=== PATIENT | female | born 1935 | race Caucasian/White ===

== ENCOUNTER → 2024-05-21 07:06 | Outpatient (REF) | payer BC, SELFPAY ==
[2024-05-21 08:44] LABS: Blood Urea Nitrogen 38 mg/dl (7-17); Calcium 9.2 mg/dl (8.4-10.2); Carbon Dioxide 26 mmol/L (22-30); Chloride 101 mmol/L (98-107); Glucose 94 mg/dl (70-99); Sodium 137 mmol/L (135-145); eGFR 54.87
== END ==
LOC: REG 07:06
PROVIDERS: ATTENDING PHYSICIAN Internal Medicine Cardiovascular Disease
DX: I50.20 Unspecified systolic (congestive) heart failure (principal)
CPT/HCPCS: 36415; 80048

== ENCOUNTER → 2024-08-03 07:08 | Outpatient (REF) | payer BC, SELFPAY ==
[2024-08-03 08:31] LABS: % Basophils 0.7 % (0-2); % Eosinophils 2.4 % (0-6); % Immature Granulocytes 0.2 % (0-0.5); % Lymphocytes 18.2 % (20.5-51.1); % Neutrophils 64.5 % (42.2-75.2); Absolute Eosinophils 0.1 10^3/uL (0-0.7); Absolute Lymphocytes 0.8 10^3/uL (1.2-3.4); Absolute Monocytes 0.6 10^3/uL (0.1-0.6); Absolute Neutrophils 2.7 10^3/uL (1.4-6.5); Hematocrit 39.9 % (37.0-47.0); Hemoglobin 13.9 g/dL (12.0-16.0); Mean Corp Hgb Conc. 34.8 g/dL (33.0-37.0); Mean Corpuscular Hgb 33.3 pg (27.0-31.0); Mean Corpuscular Volume 95.7 fL (81.0-99.0); Mean Platelet Volume 9.3 fL (7.4-10.4); Nucleated Red Blood Cells % 0 %; Platelet Count 139 10^3/uL (130-400); Red Blood Cell Count 4.17 10^6/uL (4.20-5.40); White Blood Cell Count 4.1 10^3/uL (4.8-10.8)
[2024-08-03 09:05] LABS: ALT (SGPT) 24 U/L (0-35); AST (SGOT) 27 U/L (14-36); Albumin 4.6 g/dl (3.5-5.0); Alkaline Phosphatase 81 U/L (38-126); Blood Urea Nitrogen 33 mg/dl (7-17); Calcium 9.2 mg/dl (8.4-10.2); Carbon Dioxide 27 mmol/L (22-30); Chloride 106 mmol/L (98-107); Glucose 91 mg/dl (70-99); HDL Cholesterol 74 mg/dl; LDL Cholesterol, Calculated 76 mg/dl; Potassium 3.8 mmol/L (3.5-5.1); Sodium 141 mmol/L (135-145); Total Bilirubin 0.8 mg/dl (0.2-1.3); Total Cholesterol 165 mg/dl (50-199); Total Protein 6.8 g/dl (6.3-8.2); Triglyceride 75 mg/dl (10-149); Very Low Density Lipoprotein 15 mg/dl (0-30); eGFR > 60.00
[2024-08-03 09:11] LABS: Free T4 1.84 ng/dl (0.78-2.19)
[2024-08-03 09:25] LABS: TSH 1.54 uIU/ml (0.47-4.68)
== END ==
LOC: REG 07:08
PROVIDERS: ATTENDING PHYSICIAN Internal Medicine Cardiovascular Disease
DX: Z76.89 Persons encountering health services in other specified circumstances (principal); I10 Essential (primary) hypertension; E78.2 Mixed hyperlipidemia; N18.31 Chronic kidney disease, stage 3a; I50.32 Chronic diastolic (congestive) heart failure; I48.0 Paroxysmal atrial fibrillation; Z79.01 Long term (current) use of anticoagulants; K21.9 Gastro-esophageal reflux disease without esophagitis; K58.2 Mixed irritable bowel syndrome; F32.4 Major depressive disorder, single episode, in partial remission; F41.1 Generalized anxiety disorder; Z86.73 Personal history of transient ischemic attack (TIA), and cerebral infarction without residual deficits; Z86.2 Personal history of diseases of the blood and blood-forming organs and certain disorders involving the immune mechanism; I50.20 Unspecified systolic (congestive) heart failure
CPT/HCPCS: 36415; 80053; 80061; 84439; 84443; 85025

== ENCOUNTER → 2024-08-09 09:07 | Outpatient (REF) | payer BC, SELFPAY | LOC: RCS 09:07 | PROVIDERS: ATTENDING PHYSICIAN Internal Medicine Cardiovascular Disease | DX: I50.20 Unspecified systolic (congestive) heart failure (principal); I34.0 Nonrheumatic mitral (valve) insufficiency; I36.1 Nonrheumatic tricuspid (valve) insufficiency | CPT/HCPCS: 93306 ==

== ENCOUNTER 2024-12-03 18:50 | Emergency (ER) | payer BC, SELFPAY ==
[2024-12-03] VITALS (8 sets, daily range): BP systolic 93–114; BP diastolic 55–83; BMI 24.8
--- NOTE | 2024-12-03 19:26 | ED.GENMED ---
History of Present Illness
<LEATHA Dixon - Last Filed: 12/04/24 17:43>
General
Chief Complaint: Fall
Source: patient
Exam Limitations: none
Time Seen by Provider: 12/03/24 19:00
Nursing documentation reviewed up to this point in time: agreed with
History of Present Illness
History of Present Illness:
89-year-old female with past medical history of hypertension hyperlipidemia bleeding ulcer cardiac stent presents to the ER for evaluation of fall. Patient reports she got out of her chair turned quickly lost her balance and fell hitting her left
rib area into the arm of her sofa. She denies hitting her head. She got herself up. She called her family and EMS. She denies any headache or neck pain or back pain. She claims of pain to the left rib worse with movement taking a deep breath.
She is on Eliquis for A-fib
Phy Exam
<LEATHA Dixon - Last Filed: 12/04/24 17:43>
General Physical Exam
General Presentation: no apparent distress
General age: appears stated age
General Skin: warm and dry
General Habitus: normal
General Mental: alert
General Hydration: appears well hydrated
Cardiovascular Exam
Cardiovascular Exam: no murmur and irregularly irregular
Pulmonary Exam
Pulmonary Exam: lungs clear, no respiratory distress and other (nml inspection to chest/chest wall however tender to left lateral rib region )
Gastrointestinal Exam
Gastrointestinal Exam: soft and other (tender luq nml inspection )
Neurological Exam
Neurological Exam: alert and oriented x3
Musculoskeletal Exam
Musculoskeletal Exam: full ROM
Skin Exam
Skin Exam: normal color and warm/dry
Psychiatric Exam
Psychiatric Exam: normal mood/affect
Course
<LEATHA Dixon - Last Filed: 12/04/24 17:43>
Orders/Labs/Results
Orders:
Orders
12/03/24 19:02
EKG [Electrocardiogram (*1)] Urgent
Reason for Study: Chest Pain
EKG- Treatment ONCE
12/03/24 19:25
Chest/Abd/Pelvis w Contrast CT [CT Chest/abd/pel W Iv Cont] Urgent
Comment:
Reason For Exam: left rib pain/left upper abd pain on eliquis
Cardiac Monitoring- Treatment ONCE
12/03/24 19:26
IV Insert/Care/Rem.- Treatment PRN
0.9% Sodium Chloride 500 ml [Nss] 500 ml IV BOLUS
Morphine Sulfate 2 mg IV NOW STA
12/03/24 19:30
Complete Blood Count/With Diff Urgent
Comprehensive Metabolic Panel Urgent
12/03/24 20:53
Morphine Sulfate 2 mg .ROUTE .STK-MED ONE
12/03/24 20:55
Morphine Sulfate 2 mg IV NOW STA
12/03/24 21:57
CT Cervical Spine W/o Iv Contr Urgent
Comment:
Reason For Exam: fall
CT Head W/o Iv Contrast Urgent
Comment:
Reason For Exam: fall
12/04/24 01:56
Morphine Sulfate 2 mg .ROUTE .STK-MED ONE
12/04/24 01:57
Morphine Sulfate 2 mg IV NOW STA
Abnormal Lab Results
12/03/24
19:30
MCH 33.2 H pg
(27.0-31.0)
Absolute Lymphs (auto) 0.8 L 10^3/uL
(1.2-3.4)
Absolute Monos (auto) 0.7 H 10^3/uL
(0.1-0.6)
Neutrophils % 76.7 H %
(42.2-75.2)
Lymphocytes % 11.5 L %
(20.5-51.1)
Monocytes % 10.5 H %
(1.7-9.3)
BUN 42 H mg/dl
(7-17)
Creatinine 1.1 H mg/dL
(0.6-1.0)
Glucose 100 H mg/dl
(70-99)
12/03/24 19:30
12/03/24 19:30
Vital Signs
Initial and Last Documented VS:
Initial Vital Signs
BP
101/69
12/03/24 18:57
Last Documented Vital Signs
Temp Pulse Resp BP Pulse Ox
97.7 F 107 24 115/67 97
12/03/24 18:59 12/04/24 02:23 12/04/24 02:23 12/04/24 02:23 12/04/24 02:23
[employer]ide [employer] Commanding Officer consulted with Physician
H[employer] Commanding Officer consulted with physician?: Yes
Name of Physician Consulted: felix
<Hanna Ornelas MD - Last Filed: 12/03/24 22:03>
Orders/Labs/Results
Orders:
Orders
12/03/24 19:02
EKG [Electrocardiogram (*1)] Urgent
Reason for Study: Chest Pain
EKG- Treatment ONCE
12/03/24 19:25
Chest/Abd/Pelvis w Contrast CT [CT Chest/abd/pel W Iv Cont] Urgent
Comment:
Reason For Exam: left rib pain/left upper abd pain on eliquis
Cardiac Monitoring- Treatment ONCE
12/03/24 19:26
IV Insert/Care/Rem.- Treatment PRN
0.9% Sodium Chloride 500 ml [Nss] 500 ml IV BOLUS
Morphine Sulfate 2 mg IV NOW STA
12/03/24 19:30
Complete Blood Count/With Diff Urgent
Comprehensive Metabolic Panel Urgent
12/03/24 20:53
Morphine Sulfate 2 mg .ROUTE .STK-MED ONE
12/03/24 20:55
Morphine Sulfate 2 mg IV NOW STA
12/03/24 21:57
CT Cervical Spine W/o Iv Contr Urgent
Comment:
Reason For Exam: fall
CT Head W/o Iv Contrast Urgent
Comment:
Reason For Exam: fall
12/04/24 01:56
Morphine Sulfate 2 mg .ROUTE .STK-MED ONE
12/04/24 01:57
Morphine Sulfate 2 mg IV NOW STA
Abnormal Lab Results
12/03/24
19:30
MCH 33.2 H pg
(27.0-31.0)
Absolute Lymphs (auto) 0.8 L 10^3/uL
(1.2-3.4)
Absolute Monos (auto) 0.7 H 10^3/uL
(0.1-0.6)
Neutrophils % 76.7 H %
(42.2-75.2)
Lymphocytes % 11.5 L %
(20.5-51.1)
Monocytes % 10.5 H %
(1.7-9.3)
BUN 42 H mg/dl
(7-17)
Creatinine 1.1 H mg/dL
(0.6-1.0)
Glucose 100 H mg/dl
(70-99)
12/03/24 19:30
12/03/24 19:30
Vital Signs
Initial and Last Documented VS:
Initial Vital Signs
BP
101/69
12/03/24 18:57
Last Documented Vital Signs
Temp Pulse Resp BP Pulse Ox
97.7 F 107 24 115/67 97
12/03/24 18:59 12/04/24 02:23 12/04/24 02:23 12/04/24 02:23 12/04/24 02:23
<LEATHA Dixon - Last Filed: 12/04/24 17:43>
MDM/Problems Addressed
Differential Diagnosis Includes:
Not limited to rib fracture, contusion, less likely intra-abdominal injury
MDM/Problems Addressed:
Patient is a 9-year-old female that reports she lost her footing/balance and tripped falling into her sofa with her left chest. She complains of left-sided rib discomfort. She denies hitting her head no head injury exam no headache normal
neurological exam. She is however on Eliquis for A-fib. She denies any abdominal pain. On exam however she is mildly tender in the left upper abdomen and CT chest and abdomen pelvis were done. CT does show, multiple rib fractures, subtle
posterior 12th rib fracture posterior and posterior lateral left rib fracture slightly displaced fracture involving the 10th rib and slightly displaced fracture involving the lateral 10th rib. There is a left lateral upper abdominal hematoma
adjacent to the 10th rib fracture. She has a known pericardial effusion which also seen on CAT scan.
She remains awake alert in no acute distress stable vital signs neurologically intact. Case discussed ED physician will transfer to trauma center, [place] as requested by family. As requested by trauma center will CT head and cervical spine.
Patient's granddaughter at bedside. I did speak with patient's daughter power of patent attorney Mayra Montanez and discussed diagnosis and need for transfer. She is agreeable to transfer to [facility].
<LEATHA Dixon - Last Filed: 12/04/24 17:43>
*Radiology
Radiology exam reviewed: radiology read reviewed
*Pulse Oximetry
SaO2: 98
Oxygen Mode of Delivery: Room air
Patient hypoxic: no
*Critical Care Note
Total Time (30-74mins, 75-104mins- exclusive of procedures): Not Applicable
ED Attending Note
<LEATHA Dixon - Last Filed: 12/04/24 17:43>
-
Portions of this chart may have been created with voice recognition software.� Occasional wrong word or��sound alike� substitutions may have occurred due to the inherent limitations of voice recognition software.
<Hanna Ornelas MD - Last Filed: 12/03/24 22:03>
ED Attending Note
Patient seen and examined by attending physician: Yes
I performed the substantive portion of visit, reviewed & personally made and approve the management plan that is documented in note by myself or BERNADETTE.: Yes
ED Attending Note:
89-year-old female presents status post mechanical fall suffering injury to the left side of her chest wall. She denies head injury, loss of consciousness, neck pain, numbness, tingling. On exam here, patient awake alert lucid, no respiratory
distress. CT consistent with multiple rib fractures, no hemothorax, no pneumothorax, no abdominal pelvic abnormalities. Case discussed with Jocelynn for transfer to trauma, Dr. DHARA SOTO is excepting. They would like CT of head and neck before
actual transport and we will contact them once the studies are completed. Patient remained stable. She does have a small chest wall hematoma as well.
Discharge Plan
Departure
Patient Disposition: Acute Care Hospital
Date of Disposition: 12/03/24
Time of Disposition: 22:03
Discharge Problem:
Multiple fractures of ribs, Abdominal hematoma
Referrals:
UNKNOWN - PT DOES,NOT KNOW [Family Provider]
Hospital Transfer
Other hospital: [place] [facility]
I certify that the patient requires transfer: Yes
Discussed case with accepting physician: Dr Song
Reason for transfer: higher level of care
Interventions
Interventions:
*Risk Screen - Suicide Last Done: 12/03/24 18:54
*General Assessment Last Done: 12/03/24 18:54
*Neglect/Abuse Screening Last Done: 12/03/24 18:54
*ED- Fall Risk Assessment Last Done: 12/03/24 19:01
*ED COVID-19 Vaccine History Last Done: 12/03/24 18:55
*Nursing Disposition Last Done: 12/04/24 02:23
ED-Musculoskeletal Assessment Last Done: 12/03/24 19:02
ED- Neurological Assessment Last Done: 12/03/24 19:02
ED-Skin Assessment Last Done: 12/03/24 19:02
Discharge Date and Time
Discharge Date/Time: 12/04/24 02:28
Print Language: ALBANIAN
[2024-12-03] MEDS: MORPHINE SULFATE 2 MG IV ×2 (19:33→20:56)
[2024-12-03] MEDS: NSS 500 IV (19:33)
[2024-12-03 19:45] LABS: Hematocrit 43.1 % (37.0-47.0); Hemoglobin 14.9 g/dL (12.0-16.0); Mean Corp Hgb Conc. 34.6 g/dL (33.0-37.0); Mean Corpuscular Volume 96.0 fL (81.0-99.0); Nucleated Red Blood Cells % 0 %; Platelet Count 165 10^3/uL (130-400); Red Cell Dist. Width 14.3 % (11.5-14.5)
[2024-12-03 19:58] LABS: ALT (SGPT) 29 U/L (0-35); AST (SGOT) 31 U/L (14-36); Albumin 4.7 g/dl (3.5-5.0); Alkaline Phosphatase 84 U/L (38-126); Blood Urea Nitrogen 42 mg/dl (7-17); Calcium 9.5 mg/dl (8.4-10.2); Carbon Dioxide 29 mmol/L (22-30); Chloride 100 mmol/L (98-107); Estimated Creatinine Clearance 25 ml/min; Glucose 100 mg/dl (70-99); Potassium 4.6 mmol/L (3.5-5.1); Sodium 136 mmol/L (135-145); Total Protein 7.0 g/dl (6.3-8.2); eGFR 48.63
[2024-12-04 00:28] VITALS: BP 110/74
[2024-12-04 01:00] VITALS: BP 110/66
[2024-12-04] MEDS: MORPHINE SULFATE 2 MG IV (01:58)
[2024-12-04 02:00] VITALS: BP 115/67
[2024-12-04 02:23] VITALS: BP 115/67
== END 2024-12-04 02:28 | disposition short-term general hospital (02) ==
LOC: EMR 18:50
PROVIDERS: Nurse Practitioner; EMERGENCY PHYSICIAN Emergency Medicine
DX: S22.42XA Multiple fractures of ribs, left side, initial encounter for closed fracture (principal); S30.1XXA Contusion of abdominal wall, initial encounter; W01.190A Fall on same level from slipping, tripping and stumbling with subsequent striking against furniture, initial encounter; E78.5 Hyperlipidemia, unspecified; I10 Essential (primary) hypertension; I48.91 Unspecified atrial fibrillation; Z79.01 Long term (current) use of anticoagulants; Z95.5 Presence of coronary angioplasty implant and graft
CPT/HCPCS: 96374; 96376; 96361; 99285; 70450; 71260; 72125; 74177; 80053; 85025; 93005; Q9967

== ENCOUNTER → 2025-02-14 14:51 | Outpatient (REF) | payer OTHER, SELFPAY | LOC: RCS 14:51 | PROVIDERS: ATTENDING PHYSICIAN Internal Medicine Cardiovascular Disease | DX: I31.39 Other pericardial effusion (noninflammatory) (principal); I48.21 Permanent atrial fibrillation | CPT/HCPCS: 93306 ==